=== PATIENT | female | born 1935 | race African-American/Black ===

== ENCOUNTER 2020-07-04 19:57 | Observation (INO) | payer MEDICARE, SELFPAY ==
--- NOTE | ~2020-07-04 | CT_ITS ---
EXAMINATION: CT pelvis wo con EXAM DATE: 07/04/2020 23:00 INDICATION: Fall today with left hip, pelvic pain. Hip replacements and negative x-ray. TECHNIQUE: Spiral CT pelvis wo con was performed pelvis Axial, coronal and sagittal images were revi ewed. The dose-length product (DLP) for this examination was 394.45 mGy-cm. The exposure was tailor ed according to patient size (auto mA exposure control), and iterative reconstruction (ASIR) was used as additional dose reduction technique. Correlation is made to x-ray same date. FINDINGS: There are bilateral hip replacements. This is causing some metallic artifact. Femoral compo nents were incompletely imaged but no fracture seen through them on the water system operator image or previous x-ray . Equivocal acute nondisplaced left superior ramus fracture. There is moderate amount of colonic stoo l. Pessary. Bladder poorly visualized. Extensive arterial sclerotic disease. IMPRESSION: Equivocal acute nondisplaced left superior ramus fracture Reviewed, dictated and finalized at location A.
--- NOTE | ~2020-07-04 | CT_ITS ---
EXAMINATION: CT brain wo con EXAM DATE: 07/04/2020 21:53 INDICATION: Fall, head injury. Alzheimer's. TECHNIQUE: Spiral CT of the head was performed without contrast. Axial, coronal and sagittal images were reviewed. The dose-length product (DLP) for this examination was 605.33 mGy-cm. The exposure w as tailored according to patient size, and iterative reconstruction (ASIR) was used as additional dos e reduction technique. There is no prior study for comparison. FINDINGS: There is no acute intraparenchymal hemorrhage. No evidence of intraparenchymal brain mass lesion. No evidence of acute infarction. Please note that initial head CT has limited sensitivity f or small or acute infarctions. There is old right thalamic lacunar infarction. There is moderate pe riventricular and subcortical hypodensity, nonspecific but probably related to small vessel ischemic disease. There is moderate prominence of the sulci and ventricles related to cerebral atrophy. Th ere is intracranial carotid arteriosclerosis. There are no extra-axial collections. There is no mas s effect or midline shift. Patient has had bilateral ocular lens surgery. Soft tissue is unremarkab le. The visualized sinuses and mastoid air cells are well aerated. IMPRESSION: 1. No acute intracranial findings. 2. Chronic age related findings. 3. 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 Reviewed, dictated and finalized at location A.
--- NOTE | ~2020-07-04 | XR_ITS ---
EXAMINATION: XR hip LT 2V w AP pelvis EXAM DATE: 07/04/2020 20:54 INDICATION: Initial encounter following injury, with pain of the pelvis, left hip. TECHNIQUE: Left hip frontal, 'frog leg' projections for interpretation. Frontal projection pelvis. C omparison is made to prior examination from 10/18/2019. FINDINGS: Pelvic ring appears intact. There are bilateral hip replacements, hardware is in expected p osition, with appearance unchanged compared to prior study. There are no acute fractures identified. There are arterial calcifications, arteriosclerosis. IMPRESSION: Intact bilateral hip replacements. Reviewed, dictated and finalized at location A.
[2020-07-04 20:11] VITALS: BP 148/87; PULSE 105; RESP 20; O2SAT 100
[2020-07-04 20:20] VITALS: BP 140/80; PULSE 109; RESP 20; TEMP 36.7; O2SAT 100
[2020-07-04 21:41] LABS: Basophils Absolute Auto 0.1 K/mm3 (0.0-0.1); Basophils Percent Auto 1.1 % (0.2-1.2); Eosinophils Absolute Auto 0.1 K/mm3 (0-0.3); Eosinophils Percent Auto 0.9 % (0-4.4); Hematocrit 41.6 % (37.0-47.0); Hemoglobin 13.3 g/dL (12.0-15.0); Immature Granulocyte Absolute 0.02 K/mm3 (0.00-0.031); Immature Granulocyte Percent A 0.4 % (0-0.5); Lymphocytes Percent Auto 18.1 % (18.3-44.2); Mean Corpuscular Hemoglobin 27.9 pg (26-34); Mean Corpuscular Volume 87.2 fl (80-100); Mean Platelet Volume 9.4 fl (7.4-10.4); Monocytes Absolute Auto 0.5 K/mm3 (0.1-0.6); Monocytes Percent Auto 8.3 % (2.6-8.5); Neutrophils Absolute Auto 3.9 K/mm3 (1.3-6.7); Neutrophils Percent Auto 71.2 % (45.5-73.1); Platelet Count Result 287 k/mm3 (150-375); Red Blood Count 4.77 M/mm3 (4.2-5.4); Red Cell Distribution Width 17.5 % (11.5-14.5); White Blood Count 5.5 K/mm3 (4.5-10.0)
[2020-07-04 21:51] LABS: Prothrombin Time 12.9 Seconds (11.1-14.7)
[2020-07-04 21:52] LABS: Partial Thromboplastin Time 36.7 SECONDS (22.3-36.8)
[2020-07-04 21:54] LABS: Alanine Aminotransferase 13 U/L (4-35); Alkaline Phosphatase 98 U/L (38-126); Anion Gap 5 mmol/L (8-16); Aspartate Amino Transferase 24 U/L (14-36); Bilirubin,Total 0.5 mg/dL (0.2-1.3); Blood Urea Nitrogen 10 mg/dL (7-17); Calcium 9.2 mg/dL (8.4-10.2); Carbon Dioxide 27 mmol/L (22-30); Chloride 107 mmol/L (98-107); Estimated CRCL calculation 32 ml/min; Estimated Glomerular Filt Rate > 60; Glucose 100 mg/dL (65-105); Potassium 4.4 mmol/L (3.4-5.0); Sodium 139 mmol/L (137-145)
[2020-07-04 22:00] VITALS: BP 142/130; PULSE 80; RESP 17; O2SAT 96
[2020-07-04 22:20] LABS: Add Urine Microscopic? YES; Appearance Urine Clear (Clear); Bilirubin Urine Negative (Negative); Blood Urine 1+ (Negative); Color Urine Yellow (Yellow); Glucose Urine UA Negative (Negative); Ketones Urine Negative (Negative); Leukocyte Esterase Ur Negative LEU/UL (Negative); Mucus Urine Rare /lpf; Nitrate Urine Negative (Negative); Protein Urine Negative (Negative); RBC Urine 0-2 /hpf (0-2); Specific Grav Ur 1.013 (1.001-1.035); Urobilinogen Urine Negative mg/dL (<2.0); WBC Urine 0-3 /hpf
--- NOTE | 2020-07-04 22:37 | ED.LOWEXIN ---
HPI - Extremity Injury (Lower) General Chief Complaint: Extremity Injury, Lower Stated Complaint: FALL Source: RN notes reviewed History of Present Illness HPI Narrative: Patient presents emergency department from home for a fall. History is per the patient's daughter states patient has dementia and was on with her. She states the patient gets up and wanders at night. States that approximately 6 AM this morning the patient fell initially the patient had no complaints and the fall was witnessed by daughter denies patient hitting her head. She states that throughout the day patient noted increasing pain in her left pelvis and hip region to the point she is not able to get up and walk. When asked to point to the pain the patient currently points in the left groin region the patient denies any other trauma or injury Related Data Home Medications Medication Instructions Recorded Confirmed aspirin 81 mg tablet,delayed 81 mg PO DAILY 04/17/20 release mirtazapine [Remeron] 15 mg PO HS 07/04/20 tramadol 50 mg PO TID PRN 07/04/20 Allergies Allergy/AdvReac Type Severity Reaction Status Date / Time No Known Allergies Allergy Unverified 07/04/20 20:23 Review of Systems Review of Systems: Narrative: Gen.: Denies fevers or chills ENT: Denies congestion Respiratory: Denies shortness of breath or cough CV: Denies chest pain or palpitations GI: Denies abdominal pain nausea, emesis or diarrhea Musculoskeletal: See HPI Neuro: Denies headache or change in mental status Skin: Denies rash Except as documented, all other systems reviewed and negative PMFSH Past Medical History Medical History History of dementia History of gastroesophageal reflux (GERD) Social History Social History Smoking status: Current every day smoker Gender identity (if verbalized by the patient): Female Exam Narrative: Exam Narrative: APPEARANCE: No acute distress, nontoxic, resting in bed EYES: PERRL, EOMI HEENT: Normocephalic, atraumatic, OMM RESPIRATORY: No respiratory distress Clear to auscultation bilaterally with no rhonchi wheezing or rales. CARDIOVASCULAR: Regular rate and rhythm without murmurs rubs or gallops. ABDOMINAL: Soft, nontender, nondistended, no rebound or guarding MUSCULOSKELETAl: Moves all extremities. No clubbing, cyanosis or edema. No tenderness over the left hip pain with active flexion of the left hip with passive range of motion full movement of the left hip without pain no tenderness the left knee or ankle, dorsalis pedis pulse 2+, neurovascular intact NEURO: Awake and alert. Following commands, speech normal, no focal deficits SKIN:: Warm, dry. No rashes lesions or abrasions PSYCHIATRIC: Normal affect/mood, Course Course Emergency Course: After initial x-ray attempt to get patient up to walk patient unable to walk secondary to pain. At this time will obtain CT pelvis Discussed with Dr. Alcantar presentation work-up. Agrees with admission at this time recommends consult with orthopedics in a.m. Discussed with patient and family results of workup and diagnosis. Discussed need for admission. Patient and family understand and agree to current treatment plan Vital Signs Vital signs: Vital Signs Pulse Rate 105 H 07/04/20 20:11 Respiratory Rate 20 07/04/20 20:11 Blood Pressure 148/87 H 07/04/20 20:11 Pulse Oximetry 100 07/04/20 20:11 Temperature 98.0 F 07/04/20 20:20 Pulse Rate 109 H 07/04/20 20:20 Respiratory Rate 20 07/04/20 20:20 Blood Pressure 140/80 07/04/20 20:20 Pulse Oximetry 100 07/04/20 20:20 MDM - Extremity Injury (Lower) Lab Data Result diagrams: 07/04/20 21:32 07/04/20 21:32 Labs: Lab Results 07/04/20 07/04/20 07/04/20 Range/Units 21:32 21:32 21:32 WBC 5.5 (4.5-10.0) K/mm3 RBC 4.77 (4.2-5.4) M/mm3 Hgb 13.3 (12.0-
[2020-07-04 23:24] VITALS: BP 137/121; PULSE 85; RESP 17; TEMP 36.8; O2SAT 100
[2020-07-05 00:01] VITALS: BP 153/115
[2020-07-05 00:10] VITALS: BP 157/98; PULSE 100; RESP 20; TEMP 36.9; O2SAT 99
--- NOTE | 2020-07-05 00:12 | ADMGEN ---
This patient, Lisa Knutson, was admitted to [facility] Surg Room 307-01. Patient/family oriented to hospital policies and general routines including ID bracelet, bed and alarms, visiting hours, pain management, procedures, bathroom and other care routines, personal items, smoking policy, room service/diet, and visiting hours. Valuables list has been completed. Information on how to activate the Rapid Response Team has been discussed. Patient/Family are encouraged to report perceived risks to care and to ask questions if they do not understand what they are told or what they should do.
[2020-07-05 00:45] VITALS: BMI 18.1
[2020-07-05 06:00] VITALS: BP 168/97; PULSE 106; RESP 18; TEMP 36.8; O2SAT 96
--- NOTE | 2020-07-05 07:31 | PM.CNOR ---
Assessment and Plan Additional Plan 85-year-old female with dementia, who apparently had a witnessed fall yesterday morning around 6:00 a.m.. She is brought to the emergency room. Her daughter states that she initially did not have any pain after the fall but as the time progressed she started complaining more pain in the left groin. Also patient was refusing to put weight on it which prompted daughter to bring her to the emergency room. Initial x-rays were negative. CT scan was equivocal for a left pubic ramus fracture. Physical exam is 85-year-old female, she appears in no distress. Her left hip flexes to 110?, externally rotates to 40, internally rotates to 20 with minimal discomfort. She states that she has moderate pain attempting to do a Stinchfield maneuver. She has no tenderness to the left hip, trochanteric region. There is ecchymosis and a mild abrasion over the anterior left knee. There is no effusion left knee. No tenderness about the left knee. There is no swelling in the left lower extremity. She has a 2+ dorsalis pedis pulse. ESR and CRP were ordered, just to rule out any possibility of infection, this does not appear to be that however. Dr. Garland did review CT scan and does not feel there is definite evidence a pubic ramus fracture. However, this may ultimately be that. Test confirmed this would be a bone scan, however since she had a fall yesterday bone scan at this point would not definitely light up to diagnose his pubic ramus fracture at this point difficulty. Bone scan is typically take 48-72 hours following trauma to confirm diagnosis. At this point we will treat this as if she does have pelvic fracture. Will have Physical therapy work with her with toe-touch weight-bearing with a walker to see if she tolerates this. If she continues to have significant problems with physical therapy, then we may need to order the bone scan. We will continue to monitor the patient while she is here. <DENNIS De La Cruz - Last Filed: 07/05/20 07:43> History of Present Illness HPI Consult date: 07/05/20 <DENNIS De La Cruz - Last Filed: 07/05/20 07:43> 07/08/20 <Agusto Garland MD - Last Filed: 07/08/20 12:30> Chief complaint: Left superior pubic rami fracture, gait <DENNIS De La Cruz - Last Filed: 07/05/20 07:43> REPLACED BY [facility] Past Medical History Medical History: Medical History History of dementia History of gastroesophageal reflux (GERD) <DENNIS De La Cruz - Last Filed: 07/05/20 07:43> Surgical History Surgical History: Surgical History History of open reduction and internal fixation (ORIF) procedure <DENNIS De La Cruz - Last Filed: 07/05/20 07:43> Social History Social History: Social History Smoking status: Current every day smoker Alcohol intake: current Substance use: never Gender identity (if verbalized by the patient): Female Spiritual care concerns: No <DENNIS De La Cruz - Last Filed: 07/05/20 07:43> Meds Home Medications and Allergies Home medications: Home Medications Medication Instructions Recorded Confirmed Type aspirin 81 mg tablet,delayed 81 mg PO DAILY 04/17/20 07/05/20 History release mirtazapine [Remeron] 15 mg PO HS 07/04/20 07/05/20 History tramadol 50 mg PO TID PRN 07/04/20 07/05/20 History <DENNIS De La Cruz - Last Filed: 07/05/20 07:43> Allergies/Adverse reactions: Allergies Allergy/AdvReac Type Severity Reaction Status Date / Time No Known Allergies Allergy Unverified 07/04/20 20:23 <DENNIS De La Cruz - Last Filed: 07/05/20 07:43> Vital Signs Vital Signs - 24 hr 07/04/20 20:11 07/04/20 20:20 07/04/20 22:00 Temperature 36.7 C Pulse Rate 105 H 109 H 80 Respiratory Rate 20 20 17 Blood Pressure 148/87 H 140/80 142/130 H
[2020-07-05 10:00] LABS: CRP 4.7 mg/dL (<1.0)
[2020-07-05 10:10] LABS: Erythrocyte Sedimentation Rate 43 mm/hr (0-20)
[2020-07-05] MEDS: ACETAMINOPHEN 325 MG TABLET 650 MG PO (12:13)
[2020-07-05 14:00] VITALS: BP 150/81; PULSE 88; RESP 18; TEMP 36.9; O2SAT 97
[2020-07-05 15:27] VITALS: BMI 18.1
--- NOTE | 2020-07-05 17:23 | PM.IMHP ---
H&P: HPI History of Present Illness Date/Time: 07/05/20 17:23 Chief complaint: Left superior pubic rami fracture, gait Narrative: Lisa Knutson is a 85 year old female with history of dementia who presented to the hospital after she had a mechanical fall a day ago. Per her daughter the patient did not have much pain first but then started to complain about groin pain and was refusing to walk. Currently she looks comfortable, she is not a good historian given her dementia but she denies pain, no SOB, no palpitations no other related symptoms . Review of Systems Review of Systems: All systems reviewed & are unremarkable except as noted in HPI and below PMFSH Past Medical History Medical History History of dementia History of gastroesophageal reflux (GERD) Surgical History Surgical History History of open reduction and internal fixation (ORIF) procedure Social History Social History Smoking status: Current every day smoker Alcohol intake: current Substance use: never Gender identity (if verbalized by the patient): Female Spiritual care concerns: No Meds Home Medications and Allergies Home Medications Medication Instructions Recorded Confirmed Type aspirin 81 mg tablet,delayed 81 mg PO DAILY 04/17/20 07/05/20 History release mirtazapine [Remeron] 15 mg PO HS 07/04/20 07/05/20 History tramadol 50 mg PO TID PRN 07/04/20 07/05/20 History Allergies Allergy/AdvReac Type Severity Reaction Status Date / Time No Known Allergies Allergy Unverified 07/04/20 20:23 Vital Signs Vital Signs - 24 hr 07/04/20 20:11 07/04/20 20:20 07/04/20 22:00 Temperature 98.0 F Pulse Rate 105 H 109 H 80 Respiratory Rate 20 20 17 Blood Pressure 148/87 H 140/80 142/130 H Pulse Oximetry 100 100 96 07/04/20 23:24 07/05/20 00:01 07/05/20 00:10 Temperature 98.2 F 98.4 F Pulse Rate 85 100 Respiratory Rate 17 20 Blood Pressure 137/121 H 153/115 H 157/98 H Pulse Oximetry 100 99 07/05/20 06:00 07/05/20 14:00 Temperature 98.3 F 98.4 F Pulse Rate 106 H 88 Respiratory Rate 18 18 Blood Pressure 168/97 H 150/81 H Pulse Oximetry 96 97 Exam Const: General: comfortable and no acute distress Other: Alert but confused, most likely at baseline. Eyes: Pupils: Equal, round and reactive pupils present Neck: Neck: supple and no JVD Resp: Effort & Inspection: normal respiratory effort Auscultation: clear to auscultation bilaterally Cardio: Rate: regular rate and tachycardic Rhythm: regular rhythm GI: GI Palp: Yes Soft to palpation Auscultation: normal bowel sounds Other: Non tender. Neuro: Speech: normal speech Motor exam (neuro): 5/5 motor strength present throughout and Normal motor muscle tone present throughout Extrem: Other: No edema, range of motion of the lower extremities are preserved. Psych: Other: Confused but pleasant , not in distress. H&P: Results Labs Labs: Short CBC 07/04/20 Range/Units 21:32 WBC 5.5 (4.5-10.0) K/mm3 Hgb 13.3 (12.0-15.0) g/dL Hct 41.6 (37.0-47.0) % Plt Count 287 (150-375) k/mm3 BMP 07/04/20 21:32 Sodium 139 Potassium 4.4 Chloride 107 Carbon Dioxide 27 BUN 10 Creatinine 0.80 Glucose 100 Calcium 9.2 Liver Function 07/04/20 Range/Units 21:32 Total Bilirubin 0.5 (0.2-1.3) mg/dL AST 24 (14-36) U/L ALT 13 (4-35) U/L Alkaline Phosphatase 98 (38-126) U/L Albumin 4.0 (3.5-5.1) g/dL Urine 07/04/20 Range/Units 22:02 Urine Color Yellow (Yellow) Urine Appearance Clear (Clear) Urine pH 5.0 (5.0-9.0) Ur Specific [place] 1.013 (1.001-1.035) Urine Protein Negative (Negative) mg/dL Urine Glucose (UA) Negative (Negative) mg/dL Assessment and Plan Assessment and plan (1) Gait instability:
[2020-07-05 22:00] VITALS: BP 153/81; PULSE 118; RESP 18; TEMP 37.3; O2SAT 98
[2020-07-05] MEDS: MELATONIN 3 MG TABLET PO (22:00)
[2020-07-05] MEDS: MIRTAZAPINE 15 MG TABLET PO (22:00)
[2020-07-05 22:01] VITALS: PULSE 118
[2020-07-05] MEDS: carvediloL 6.25 MG TABLET PO (22:01)
[2020-07-06 05:41] LABS: Basophils Absolute Auto 0.1 K/mm3 (0.0-0.1); Basophils Percent Auto 1.3 % (0.2-1.2); Eosinophils Absolute Auto 0.1 K/mm3 (0-0.3); Eosinophils Percent Auto 1.8 % (0-4.4); Hematocrit 38.3 % (37.0-47.0); Hemoglobin 12.3 g/dL (12.0-15.0); Immature Granulocyte Absolute 0.01 K/mm3 (0.00-0.031); Immature Granulocyte Percent A 0.2 % (0-0.5); Lymphocytes Absolute Auto 1.25 K/mm3 (0.9-3.2); Lymphocytes Percent Auto 22.5 % (18.3-44.2); Mean Corpuscular HGB Conc 32.1 g/dl (32-36); Mean Corpuscular Hemoglobin 28.1 pg (26-34); Mean Corpuscular Volume 87.4 fl (80-100); Mean Platelet Volume 9.6 fl (7.4-10.4); Monocytes Absolute Auto 0.6 K/mm3 (0.1-0.6); Monocytes Percent Auto 9.9 % (2.6-8.5); Neutrophils Absolute Auto 3.6 K/mm3 (1.3-6.7); Neutrophils Percent Auto 64.3 % (45.5-73.1); Platelet Count Result 255 k/mm3 (150-375); Red Blood Count 4.38 M/mm3 (4.2-5.4); Red Cell Distribution Width 17.5 % (11.5-14.5); White Blood Count 5.6 K/mm3 (4.5-10.0)
[2020-07-06 06:00] VITALS: BP 167/88; PULSE 103; RESP 18; TEMP 36.5; O2SAT 98
[2020-07-06 06:15] LABS: Anion Gap 6 mmol/L (8-16); Blood Urea Nitrogen 12 mg/dL (7-17); Calcium 8.9 mg/dL (8.4-10.2); Carbon Dioxide 26 mmol/L (22-30); Chloride 105 mmol/L (98-107); Estimated CRCL calculation 43 ml/min; Estimated Glomerular Filt Rate > 60; Glucose 87 mg/dL (65-105); Potassium 4.3 mmol/L (3.4-5.0); Sodium 137 mmol/L (137-145)
[2020-07-06 08:47] VITALS: PULSE 96
[2020-07-06] MEDS: ASPIRIN 81 MG ENTERIC TABLET PO (08:47)
[2020-07-06] MEDS: carvediloL 6.25 MG TABLET PO ×2 (08:47→20:46)
--- NOTE | 2020-07-06 11:46 | PM.IMPN ---
Progress Note: A&P Assessment and Plan (1) Gait instability: Code(s): R26.81 - Unsteadiness on feet Status: Acute Assessment and Plan: She was thought to have a pubic ramus fracture but orthopedics is not convinced that that is the case. She is going to get physical therapy and she is having tylenol for pain. (2) Hypertension: Code(s): I10 - Essential (primary) hypertension Status: Acute Assessment and Plan: Her blood pressure still on the high side but acceptable for her age, her HR under better control. On carvedilol. (3) Dementia: Code(s): F03.90 - Unspecified dementia without behavioral disturbance Status: Acute Assessment and Plan: She seems at baseline but she is at risk for delirium. Avoid medications with high anticholinergic burden. Subjective Date/time seen: Confused, trying to get out of bed, no in distress. 07/06/20 11:46 Exam Const: General: comfortable and no acute distress Other: Alert but confused, most likely at baseline. Neck: Neck: supple and no JVD Resp: Effort & Inspection: normal respiratory effort Auscultation: clear to auscultation bilaterally Cardio: Rate: regular rate and tachycardic Rhythm: regular rhythm GI: Auscultation: normal bowel sounds Other: Non tender. Neuro: Cranial nerves: Yes Equal, round and reactive pupils present Speech: normal speech Motor exam (neuro): 5/5 motor strength present throughout and Normal motor muscle tone present throughout Extrem: Other: No edema. Objective Data Vital Signs Vital Signs: Vital Signs - 24 hr 07/05/20 14:00 07/05/20 22:00 07/05/20 22:01 Temperature 98.4 F 99.2 F Pulse Rate 88 118 H 118 H Respiratory Rate 18 18 Blood Pressure 150/81 H 153/81 H Pulse Oximetry 97 98 07/06/20 06:00 07/06/20 08:47 Temperature 97.7 F Pulse Rate 103 H 96 Respiratory Rate 18 Blood Pressure 167/88 H Pulse Oximetry 98 Intake/Output Intake/Output: Intake & Output 07/03/20 07/04/20 07/05/20 07/06/20 23:59 23:59 23:59 23:59 Intake Total 100 570 370 Output Total 300 Balance -200 570 370 Meds/Results Medications: Active Medications Generic Name Dose Route Start Last Admin Trade Name Tyron PRN Reason Stop Dose Admin Acetaminophen 650 mg 07/05/20 11:51 07/05/20 12:13 Tylenol Tablet PO 650 mg Q4H PRN Administration Pain Aspirin 81 mg 07/06/20 09:00 07/06/20 08:47 Aspirin Ec PO 81 mg DAILY MOHAN Administration Carvedilol 6.25 mg 07/05/20 21:00 07/06/20 08:47 Coreg PO 6.25 mg Q12HR MOHAN Administration Melatonin 3 mg 07/05/20 21:00 07/05/20 22:00 Melatonin PO 3 mg HS MOHAN Administration Mirtazapine 15 mg 07/05/20 21:00 07/05/20 22:00 Remeron PO 15 mg HS MOHAN Administration Tramadol HCl 50 mg 07/05/20 12:52 Ultram PO TID PRN Pain 4 -6 Radiology Results: ITS Impressions Hip/Pelvis X-Ray 07/04/20 21:03 IMPRESSION: Intact bilateral hip replacements. Head CT 07/04/20 21:55 IMPRESSION: 1. No acute intracranial findings. 2. Chronic age related findings. 3. 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 Pelvis CT 07/04/20 23:01 IMPRESSION: Equivocal acute nondisplaced left superior ramus fracture Labs Labs: Laboratory Results - last 24 hr 07/06/20 07/06/20 05:16 05:16 WBC 5.6 RBC 4.38 Hgb 12.3 Hct 38.3 MCV 87.4 MCH 28.1 MCHC 32.1 RDW 17.5 H Plt Count 255 MPV 9.6 Immature Gran % (Auto) 0.2 Neut % (Auto) 64.3 Lymph % (Auto) 22.5 [place] % (Auto) 9.9 H Eos % (Auto) 1.8 Baso % (Auto) 1.3 H Lymph # (Auto) 1.25 [place] # (Auto) 0.6 Eos # (Auto) 0.1 Baso # (Auto) 0.1 Abs Immat Gran (auto) 0.01 Absolute Neuts (auto) 3.6 Absolute Nucleated RBC 0.0 Nucleated RBC % 0.0 Sodium 137 Potassium 4.3 Chloride 105 Carbon Dioxide 26 Anion Gap 6 L BUN 12 Creatinine 0.60 L Estim Crea
--- NOTE | 2020-07-06 12:00 | PM.PNORT ---
Progress Note: A&P Additional Plan pt did not work well with PT this am, CRP 4.7 and ESR 43 which are elevated. today pts hip flexs to 110 degreees ,ER to 40 and IR to 30 without any sign of discomfort,no facial changes ,grimmacing, no c/o of pain, pt is able to hold leg in extension without pain. No tenderness about the hip or post. pelvis. It is a difficult to determine as diagnosis for this pt. She does have slightly elevated labs but PE does not reproduce any symptoms. Typically infx would reproduce severe pain with ROM. Also pubic ramus fx should reproduce pain with ROM of hip. Today she is having now symptoms on PE. She may have pubic ramus fx but the only test to use is a bone scan which will light up the fracture. Unfortunately it takes 3-4 days after the trauma for the test to be positive. If she does have a ramus fx the treatment is the same with protected weight bearing, so at this point would recommend to cont. with this. Social work is working on NH placement <DENNIS De La Cruz - Last Filed: 07/06/20 12:10> Subjective Subjective Date/Time Seen: 07/06/20 12:01 <DENNIS De La Cruz - Last Filed: 07/06/20 12:10> Objective Data Vital Signs Vital Signs: Vital Signs - 24 hr 07/05/20 14:00 07/05/20 22:00 07/05/20 22:01 Temperature 36.9 C 37.3 C Pulse Rate 88 118 H 118 H Respiratory Rate 18 18 Blood Pressure 150/81 H 153/81 H Pulse Oximetry 97 98 07/06/20 06:00 07/06/20 08:47 Temperature 36.5 C Pulse Rate 103 H 96 Respiratory Rate 18 Blood Pressure 167/88 H Pulse Oximetry 98 <DENNIS De La Cruz - Last Filed: 07/06/20 12:10> Intake/Output Intake/Output: Intake & Output 07/03/20 07/04/20 07/05/20 07/06/20 23:59 23:59 23:59 23:59 Intake Total 100 570 370 Output Total 300 Balance -200 570 370 <DENNIS De La Cruz - Last Filed: 07/06/20 12:10> Meds/Results Medications: Active Medications Generic Name Dose Route Start Last Admin Trade Name Jessuq PRN Reason Stop Dose Admin Acetaminophen 650 mg 07/05/20 11:51 07/05/20 12:13 Tylenol Tablet PO 650 mg Q4H PRN Administration Pain Aspirin 81 mg 07/06/20 09:00 07/06/20 08:47 Aspirin Ec PO 81 mg DAILY MOHAN Administration Carvedilol 6.25 mg 07/05/20 21:00 07/06/20 08:47 Coreg PO 6.25 mg Q12HR MOHAN Administration Enoxaparin Sodium 40 mg 07/07/20 09:00 Lovenox SUB-Q DAILY MOHAN Melatonin 3 mg 07/05/20 21:00 07/05/20 22:00 Melatonin PO 3 mg HS MOHAN Administration Mirtazapine 15 mg 07/05/20 21:00 07/05/20 22:00 Remeron PO 15 mg HS MOHAN Administration Tramadol HCl 50 mg 07/05/20 12:52 Ultram PO TID PRN Pain 4 -6 <DENNIS De La Cruz - Last Filed: 07/06/20 12:10> Radiology Results: ITS Impressions Hip/Pelvis X-Ray 07/04/20 21:03 IMPRESSION: Intact bilateral hip replacements. Head CT 07/04/20 21:55 IMPRESSION: 1. No acute intracranial findings. 2. Chronic age related findings. 3. 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 Pelvis CT 07/04/20 23:01 IMPRESSION: Equivocal acute nondisplaced left superior ramus fracture <DENNIS De La Cruz - Last Filed: 07/06/20 12:10> Labs Labs: Laboratory Results - last 24 hr 07/06/20 07/06/20 05:16 05:16 WBC 5.6 RBC 4.38 Hgb 12.3 Hct 38.3 MCV 87.4 MCH 28.1 MCHC 32.1 RDW 17.5 H Plt Count 255 MPV 9.6 Immature Gran % (Auto) 0.2 Neut % (Auto) 64.3 Lymph % (Auto) 22.5 [place] % (Auto) 9.9 H Eos % (Auto) 1.8 Baso % (Auto) 1.3 H Lymph # (Auto) 1.25 [place] # (Auto) 0.6 Eos # (Auto) 0.1 Baso # (Auto) 0.1 Abs Immat Gran (auto) 0.01 Absolute Neuts (auto) 3.6 Absolute Nucleated RBC 0.0 Nucleated RBC % 0.0 Sodium 137 Potassium 4.3 Chloride 105 Carbon Dioxide 26 Anion Gap 6 L BUN 12 Creatinine 0.60 L Estim Creat Clear Calc 43 Estimated GFR > 60 Glucose 87 Calcium 8.
[2020-07-06 14:00] VITALS: BP 148/87; PULSE 83; RESP 16; TEMP 36.9; O2SAT 94
[2020-07-06 14:05] LABS: SARS-CoV-2 RNA PCR Negative
[2020-07-06 20:46] VITALS: PULSE 97
[2020-07-06] MEDS: MELATONIN 3 MG TABLET PO (20:46)
[2020-07-06] MEDS: MIRTAZAPINE 15 MG TABLET PO (20:46)
[2020-07-06] MEDS: ACETAMINOPHEN 325 MG TABLET 650 MG PO (20:55)
[2020-07-06 22:00] VITALS: BP 162/93; PULSE 97; RESP 18; TEMP 36.4; O2SAT 98
[2020-07-07 06:00] VITALS: BP 149/79; PULSE 88; RESP 18; TEMP 36.6; O2SAT 99
[2020-07-07 06:42] LABS: Basophils Absolute Auto 0.1 K/mm3 (0.0-0.1); Basophils Percent Auto 1.6 % (0.2-1.2); Eosinophils Absolute Auto 0.2 K/mm3 (0-0.3); Eosinophils Percent Auto 3.4 % (0-4.4); Hematocrit 37.5 % (37.0-47.0); Hemoglobin 11.8 g/dL (12.0-15.0); Immature Granulocyte Absolute 0.02 K/mm3 (0.00-0.031); Immature Granulocyte Percent A 0.4 % (0-0.5); Lymphocytes Absolute Auto 1.28 K/mm3 (0.9-3.2); Lymphocytes Percent Auto 28.8 % (18.3-44.2); Mean Corpuscular HGB Conc 31.5 g/dl (32-36); Mean Corpuscular Hemoglobin 27.6 pg (26-34); Mean Corpuscular Volume 87.6 fl (80-100); Mean Platelet Volume 10.1 fl (7.4-10.4); Monocytes Absolute Auto 0.5 K/mm3 (0.1-0.6); Monocytes Percent Auto 10.1 % (2.6-8.5); Neutrophils Absolute Auto 2.5 K/mm3 (1.3-6.7); Neutrophils Percent Auto 55.7 % (45.5-73.1); Platelet Count Result 264 k/mm3 (150-375); Red Blood Count 4.28 M/mm3 (4.2-5.4); Red Cell Distribution Width 17.6 % (11.5-14.5); White Blood Count 4.5 K/mm3 (4.5-10.0)
[2020-07-07 07:09] LABS: Anion Gap 5 mmol/L (8-16); Blood Urea Nitrogen 12 mg/dL (7-17); Calcium 8.9 mg/dL (8.4-10.2); Carbon Dioxide 26 mmol/L (22-30); Chloride 105 mmol/L (98-107); Estimated CRCL calculation 43 ml/min; Estimated Glomerular Filt Rate > 60; Glucose 73 mg/dL (65-105); Sodium 136 mmol/L (137-145)
--- NOTE | 2020-07-07 08:07 | PM.IMPN ---
Progress Note: A&P Assessment and Plan (1) Gait instability: Code(s): R26.81 - Unsteadiness on feet Status: Acute Assessment and Plan: Possible pubic ramus fracture, continue current management with PT, waiting on NH placement. Tylenol for pain. (2) Hypertension: Code(s): I10 - Essential (primary) hypertension Status: Acute Assessment and Plan: Her blood pressure still on the high side but acceptable for her age, her HR under better control. On carvedilol. (3) Dementia: Code(s): F03.90 - Unspecified dementia without behavioral disturbance Status: Acute Assessment and Plan: She seems at baseline but she is at risk for delirium. Avoid medications with high anticholinergic burden. Subjective Date/time seen: Confused but not in distress, she states that her pain is getting better. 07/07/20 08:07 Exam Const: General: comfortable and no acute distress Other: Alert but confused, most likely at baseline. Eyes: Pupils: Equal, round and reactive pupils present Neck: Neck: supple and no JVD Resp: Effort & Inspection: normal respiratory effort Auscultation: clear to auscultation bilaterally Cardio: Rate: regular rate and tachycardic Rhythm: regular rhythm GI: Auscultation: normal bowel sounds Other: Non tender. Neuro: Cranial nerves: Yes Equal, round and reactive pupils present Speech: normal speech Motor exam (neuro): 5/5 motor strength present throughout and Normal motor muscle tone present throughout Extrem: Other: No edema. Psych: Other: Confused but pleasant , not in distress. Objective Data Vital Signs Vital Signs: Vital Signs - 24 hr 07/06/20 08:47 07/06/20 14:00 07/06/20 20:46 Temperature 98.4 F Pulse Rate 96 83 97 Respiratory Rate 16 Blood Pressure 148/87 H Pulse Oximetry 94 07/06/20 22:00 07/07/20 06:00 Temperature 97.6 F 98 F Pulse Rate 97 88 Respiratory Rate 18 18 Blood Pressure 162/93 H 149/79 H Pulse Oximetry 98 99 Intake/Output Intake/Output: Intake & Output 07/04/20 07/05/20 07/06/20 07/07/20 23:59 23:59 23:59 23:59 Intake Total 100 570 780 100 Output Total 300 Balance -200 570 780 100 Meds/Results Medications: Active Medications Generic Name Dose Route Start Last Admin Trade Name Tyron PRN Reason Stop Dose Admin Acetaminophen 650 mg 07/05/20 11:51 07/06/20 20:55 Tylenol Tablet PO 650 mg Q4H PRN Administration Pain Aspirin 81 mg 07/06/20 09:00 07/06/20 08:47 Aspirin Ec PO 81 mg DAILY MOHAN Administration Carvedilol 6.25 mg 07/05/20 21:00 07/06/20 20:46 Coreg PO 6.25 mg Q12HR MOHAN Administration Enoxaparin Sodium 40 mg 07/07/20 09:00 Lovenox SUB-Q DAILY MOHAN Melatonin 3 mg 07/05/20 21:00 07/06/20 20:46 Melatonin PO 3 mg HS MOHAN Administration Mirtazapine 15 mg 07/05/20 21:00 07/06/20 20:46 Remeron PO 15 mg HS MOHAN Administration Tramadol HCl 50 mg 07/05/20 12:52 Ultram PO TID PRN Pain 4 -6 Radiology Results: ITS Impressions Hip/Pelvis X-Ray 07/04/20 21:03 IMPRESSION: Intact bilateral hip replacements. Head CT 07/04/20 21:55 IMPRESSION: 1. No acute intracranial findings. 2. Chronic age related findings. 3. 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 Pelvis CT 07/04/20 23:01 IMPRESSION: Equivocal acute nondisplaced left superior ramus fracture Labs Labs: Laboratory Results - last 24 hr 07/06/20 07/07/20 07/07/20 05:07 06:17 06:17 WBC 4.5 RBC 4.28 Hgb 11.8 L Hct 37.5 MCV 87.6 MCH 27.6 MCHC 31.5 L RDW 17.6 H Plt Count 264 MPV 10.1 Immature Gran % (Auto) 0.4 Neut % (Auto) 55.7 Lymph % (Auto) 28.8 [place] % (Auto) 10.1 H Eos % (Auto) 3.4 Baso % (Auto) 1.6 H Lymph # (Auto) 1.28 [place] # (Auto) 0.5 Eos # (Auto) 0.2 Baso # (Auto) 0.1 Abs Immat Gran (auto) 0.02 Absolute Neuts (auto
[2020-07-07 08:18] VITALS: PULSE 84
[2020-07-07] MEDS: ASPIRIN 81 MG ENTERIC TABLET PO (08:18)
[2020-07-07] MEDS: carvediloL 6.25 MG TABLET PO ×2 (08:18→21:55)
[2020-07-07] MEDS: ENOXAPARIN 40 MG/0.4 ML SYRINGE SUB-Q (08:20)
[2020-07-07 14:00] VITALS: BP 146/70; PULSE 86; RESP 20; TEMP 36.2; O2SAT 96
--- NOTE | 2020-07-07 18:43 | PC.NURSE ---
1700 prudence from hospice called for update on pt, no new orders given
[2020-07-07] MEDS: traMADol HCL 50 MG TABLET PO (21:54)
[2020-07-07 21:55] VITALS: PULSE 80
[2020-07-07] MEDS: MELATONIN 3 MG TABLET PO (21:55)
[2020-07-07] MEDS: MIRTAZAPINE 15 MG TABLET PO (21:56)
[2020-07-07 22:00] VITALS: BP 148/91; PULSE 91; RESP 16; TEMP 36.6; O2SAT 98
[2020-07-08 06:00] VITALS: BP 149/76; PULSE 83; RESP 16; TEMP 36.3; O2SAT 99
[2020-07-08 07:16] LABS: Basophils Absolute Auto 0.1 K/mm3 (0.0-0.1); Basophils Percent Auto 1.2 % (0.2-1.2); Eosinophils Absolute Auto 0.2 K/mm3 (0-0.3); Hematocrit 38.8 % (37.0-47.0); Hemoglobin 12.7 g/dL (12.0-15.0); Immature Granulocyte Absolute 0.02 K/mm3 (0.00-0.031); Immature Granulocyte Percent A 0.4 % (0-0.5); Lymphocytes Absolute Auto 1.73 K/mm3 (0.9-3.2); Lymphocytes Percent Auto 30.4 % (18.3-44.2); Mean Corpuscular HGB Conc 32.7 g/dl (32-36); Mean Corpuscular Hemoglobin 28.2 pg (26-34); Monocytes Absolute Auto 0.7 K/mm3 (0.1-0.6); Monocytes Percent Auto 11.8 % (2.6-8.5); Neutrophils Percent Auto 53.2 % (45.5-73.1); Platelet Count Result 289 k/mm3 (150-375); Red Blood Count 4.51 M/mm3 (4.2-5.4); Red Cell Distribution Width 17.2 % (11.5-14.5); White Blood Count 5.7 K/mm3 (4.5-10.0)
[2020-07-08 07:31] LABS: Anion Gap 6 mmol/L (8-16); Blood Urea Nitrogen 8 mg/dL (7-17); Calcium 9.2 mg/dL (8.4-10.2); Carbon Dioxide 27 mmol/L (22-30); Chloride 103 mmol/L (98-107); Estimated CRCL calculation 43 ml/min; Estimated Glomerular Filt Rate > 60; Glucose 98 mg/dL (65-105); Potassium 3.7 mmol/L (3.4-5.0); Sodium 136 mmol/L (137-145)
[2020-07-08 09:40] VITALS: PULSE 62
[2020-07-08] MEDS: ASPIRIN 81 MG ENTERIC TABLET PO (09:40)
[2020-07-08] MEDS: carvediloL 6.25 MG TABLET PO ×2 (09:40→22:32)
[2020-07-08] MEDS: ENOXAPARIN 40 MG/0.4 ML SYRINGE SUB-Q (09:41)
--- NOTE | 2020-07-08 12:30 | PM.IMPN ---
Progress Note: A&P Assessment and Plan (1) Gait instability: Code(s): R26.81 - Unsteadiness on feet Status: Acute Assessment and Plan: Possible pubic ramus fracture, continue current management with PT, waiting on NH placement. Tylenol for pain. (2) Hypertension: Code(s): I10 - Essential (primary) hypertension Status: Acute Assessment and Plan: Her blood pressure still on the high side but acceptable for her age, her HR under better control. On carvedilol. (3) Dementia: Code(s): F03.90 - Unspecified dementia without behavioral disturbance Status: Acute Assessment and Plan: She seems at baseline but she is at risk for delirium. Avoid medications with high anticholinergic burden. Subjective Date/time seen: No change in clinical status, confused but not in distress. 07/08/20 12:30 Exam Const: General: comfortable and no acute distress Other: Alert but confused, most likely at baseline. Eyes: Pupils: Equal, round and reactive pupils present Neck: Neck: supple and no JVD Resp: Effort & Inspection: normal respiratory effort Auscultation: clear to auscultation bilaterally Cardio: Rate: regular rate Rhythm: regular rhythm Other: No tachycardia or bradycardia. GI: Auscultation: normal bowel sounds Other: Non tender. Neuro: Cranial nerves: Yes Equal, round and reactive pupils present Speech: normal speech Motor exam (neuro): 5/5 motor strength present throughout and Normal motor muscle tone present throughout Extrem: Other: No edema. Psych: Other: Confused but pleasant , not in distress. Objective Data Vital Signs Vital Signs: Vital Signs - 24 hr 07/07/20 14:00 07/07/20 21:55 07/07/20 22:00 Temperature 97.2 F L 97.9 F Pulse Rate 86 80 91 Respiratory Rate 20 16 Blood Pressure 146/70 H 148/91 H Pulse Oximetry 96 98 07/08/20 06:00 07/08/20 09:40 Temperature 97.3 F L Pulse Rate 83 62 Respiratory Rate 16 Blood Pressure 149/76 H Pulse Oximetry 99 Intake/Output Intake/Output: Intake & Output 07/05/20 07/06/20 07/07/20 07/08/20 23:59 23:59 23:59 23:59 Intake Total 942 672 0768 120 Output Total 200 Balance 236 200 9588 -80 Meds/Results Medications: Active Medications Generic Name Dose Route Start Last Admin Trade Name Tyron PRN Reason Stop Dose Admin Acetaminophen 650 mg 07/05/20 11:51 07/06/20 20:55 Tylenol Tablet PO 650 mg Q4H PRN Administration Pain Aspirin 81 mg 07/06/20 09:00 07/08/20 09:40 Aspirin Ec PO 81 mg DAILY MOHAN Administration Carvedilol 6.25 mg 07/05/20 21:00 07/08/20 09:40 Coreg PO 6.25 mg Q12HR MOHAN Administration Enoxaparin Sodium 40 mg 07/07/20 09:00 07/08/20 09:41 Lovenox SUB-Q 40 mg DAILY MOHAN Administration Melatonin 3 mg 07/05/20 21:00 07/07/20 21:55 Melatonin PO 3 mg HS MOHAN Administration Mirtazapine 15 mg 07/05/20 21:00 07/07/20 21:56 Remeron PO 15 mg HS MOHAN Administration Tramadol HCl 50 mg 07/05/20 12:52 07/07/20 21:54 Ultram PO 50 mg TID PRN Administration Pain 4 -6 Radiology Results: ITS Impressions Hip/Pelvis X-Ray 07/04/20 21:03 IMPRESSION: Intact bilateral hip replacements. Head CT 07/04/20 21:55 IMPRESSION: 1. No acute intracranial findings. 2. Chronic age related findings. 3. 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 Pelvis CT 07/04/20 23:01 IMPRESSION: Equivocal acute nondisplaced left superior ramus fracture Labs Labs: Laboratory Results - last 24 hr 07/08/20 07/08/20 06:33 06:33 WBC 5.7 RBC 4.51 Hgb 12.7 Hct 38.8 MCV 86.0 MCH 28.2 MCHC 32.7 RDW 17.2 H Plt Count 289 MPV 10.0 Immature Gran % (Auto) 0.4 Neut % (Auto) 53.2 Lymph % (Auto) 30.4 [place] % (Auto) 11.8 H Eos % (Auto) 3.0 Baso % (Auto) 1.2 Lymph # (Auto) 1.73 [place] # (Auto) 0.7 H Eos # (Auto) 0.2 Baso # (Auto) 0.1 A
--- NOTE | 2020-07-08 12:30 | PM.CNOR ---
Assessment and Plan Additional Plan Patient is now day 3 after admission for groin pain complaints after a fall 3 days ago. She has significant dementia and cannot understand my questioning and her answers are unresponsive unfortunately. I am told by the nurse who watched her get up the chair today that she cannot follow commands with respect to touch weight-bearing but she was able to move around and not complain of any groin pain. She is sitting in a geriatric chair right now and she can extend her knee actively and tries to lift her leg a little bit and when she is doing this I ask if she has any pain and she says now. When I hold her heel and trying to flex her hip further I ask if she has pain and she has pain at the heel and when I palpate her knee she says she has pain at the knee and I asked if it hurts when I push on it and she says no so it is very difficult. She does not have any swelling in the lower extremity. I rotated her hip without discomfort. Again she had x-rays which show the bilateral hip replacements without evidence of fracture or complication. She had a CT scan of the pelvis which showed equivocal evidence for a superior pubic ramus fracture on the left which means we do not know if there is a superior pubic ramus fracture on the left. I think it would be appropriate to advance her to weight-bearing as tolerated with walker with the understanding that she might have complaints of pain and we should try and ascertain the location of this pain and ultimately we may need to obtain a technetium bone scan which usually takes a minimum of 72 hours to show increased uptake and with these pubic ramus fractures it may take longer than that before they show uptake on bone scan. I will advance her to weight-bearing as tolerated we will see how she does with that. If she has a nondisplaced isolated left and superior pubic ramus fracture on the left weightbearing is not Going to result in irreversible complication and although it can cause a little this bit of displacement with time. differential diagnosis also must include occult periprosthetic fracture around the hip replacement. Soft tissue strain such as an ileus psoas strain can certainly cause groin pain after a fall and the presence of a hip replacement. Infection seems extremely unlikely as she is not complaining of pain at rest and she has been afebrile with normal white count. She does have mild elevations of sedimentation rate and CRP which are nonspecific. History of Present Illness HPI Consult date: 07/08/20 Chief complaint: Left superior pubic rami fracture, gait PMFSH Past Medical History Medical History History of dementia History of gastroesophageal reflux (GERD) Surgical History Surgical History History of open reduction and internal fixation (ORIF) procedure Social History Social History Smoking status: Current every day smoker Alcohol intake: current Substance use: never Gender identity (if verbalized by the patient): Female Spiritual care concerns: No Meds Home Medications and Allergies Home Medications Medication Instructions Recorded Confirmed Type aspirin 81 mg tablet,delayed 81 mg PO DAILY 04/17/20 07/05/20 History release mirtazapine [Remeron] 15 mg PO HS 07/04/20 07/05/20 History tramadol 50 mg PO TID PRN 07/04/20 07/05/20 History Allergies Allergy/AdvReac Type Severity Reaction Status Date / Time No Known Allergies Allergy Unverified 07/04/20 20:23 Vital Signs Vital Signs - 24 hr 07/07/20 14:00 07/07/20 21:55 07/07/20 22:00 Temperature 36.2 C L 36.6 C Pulse Rate 86 80 91 Respiratory Rate 20 16 Blood Pressure 146/70 H 148/91 H Pulse Oximetry 96 98 07/08/20 06:00 07/08/20 09:40 Temperature 36.3 C L Pulse Rate 83 62 Respirat
[2020-07-08 14:00] VITALS: BP 135/78; PULSE 88; RESP 12; TEMP 36.1; O2SAT 96
[2020-07-08 22:00] VITALS: BP 146/93; PULSE 83; RESP 16; TEMP 36.6; O2SAT 100
[2020-07-08 22:32] VITALS: PULSE 94
[2020-07-08] MEDS: MIRTAZAPINE 15 MG TABLET PO (22:32)
[2020-07-09] MEDS: traMADol HCL 50 MG TABLET PO (02:35)
[2020-07-09 06:00] VITALS: BP 139/75; PULSE 89; RESP 16; TEMP 37.1; O2SAT 92
[2020-07-09] MEDS: ASPIRIN 81 MG ENTERIC TABLET PO (09:35)
[2020-07-09] MEDS: ENOXAPARIN 40 MG/0.4 ML SYRINGE SUB-Q (09:35)
[2020-07-09 09:37] VITALS: PULSE 100
[2020-07-09] MEDS: carvediloL 6.25 MG TABLET PO ×2 (09:37→20:41)
--- NOTE | 2020-07-09 11:21 | PM.PNORT ---
Progress Note: A&P Additional Plan pt worked with PT today, no c/o of pain, was refusing to up to chair. no pain ROM of hip today, working on d/c planning Subjective Subjective Date/Time Seen: 07/09/20 11:21 Objective Data Vital Signs Vital Signs: Vital Signs - 24 hr 07/08/20 14:00 07/08/20 22:00 07/08/20 22:32 Temperature 36.1 C L 36.6 C Pulse Rate 88 83 94 Respiratory Rate 12 16 Blood Pressure 135/78 146/93 H Pulse Oximetry 96 100 07/09/20 06:00 07/09/20 09:37 Temperature 37.1 C Pulse Rate 89 100 Respiratory Rate 16 Blood Pressure 139/75 Pulse Oximetry 92 Intake/Output Intake/Output: Intake & Output 07/06/20 07/07/20 07/08/20 07/09/20 23:59 23:59 23:59 23:59 Intake Total 780 1180 669 110 Output Total 200 300 Balance 780 1180 469 -190 Meds/Results Medications: Active Medications Generic Name Dose Route Start Last Admin Trade Name Freq PRN Reason Stop Dose Admin Acetaminophen 650 mg 07/05/20 11:51 07/06/20 20:55 Tylenol Tablet PO 650 mg Q4H PRN Administration Pain Aspirin 81 mg 07/06/20 09:00 07/09/20 09:35 Aspirin Ec PO 81 mg DAILY MOHAN Administration Carvedilol 6.25 mg 07/05/20 21:00 07/09/20 09:37 Coreg PO 6.25 mg Q12HR MOHAN Administration Enoxaparin Sodium 40 mg 07/07/20 09:00 07/09/20 09:35 Lovenox SUB-Q 40 mg DAILY MOHAN Administration Melatonin 3 mg 07/05/20 21:00 07/08/20 22:34 Melatonin PO Not Given HS MOHAN Mirtazapine 15 mg 07/05/20 21:00 07/08/20 22:32 Remeron PO 15 mg HS MOHAN Administration Tramadol HCl 50 mg 07/05/20 12:52 07/09/20 02:35 Ultram PO 50 mg TID PRN Administration Pain 4 -6 Radiology Results: ITS Impressions Hip/Pelvis X-Ray 07/04/20 21:03 IMPRESSION: Intact bilateral hip replacements. Head CT 07/04/20 21:55 IMPRESSION: 1. No acute intracranial findings. 2. Chronic age related findings. 3. 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 Pelvis CT 07/04/20 23:01 IMPRESSION: Equivocal acute nondisplaced left superior ramus fracture Quality VTE Prophylaxis VTE prophylaxis: pharmacologic ordered
[2020-07-09 14:00] VITALS: BP 125/75; PULSE 90; RESP 14; TEMP 36.1; O2SAT 99
--- NOTE | 2020-07-09 16:40 | PM.IMPN ---
Progress Note: A&P Assessment and Plan (1) Gait instability: Code(s): R26.81 - Unsteadiness on feet Status: Acute Assessment and Plan: Possible pubic ramus fracture, continue current management with PT, waiting on NH placement. Tylenol for pain. (2) Hypertension: Code(s): I10 - Essential (primary) hypertension Status: Acute Assessment and Plan: Her blood pressure still on the high side but acceptable for her age, her HR under better control. On carvedilol. (3) Dementia: Code(s): F03.90 - Unspecified dementia without behavioral disturbance Status: Acute Assessment and Plan: She seems at baseline but she is at risk for delirium. Avoid medications with high anticholinergic burden. Subjective Date/time seen: No changes in her condition, waiting on placement. 07/09/20 16:40 Exam Const: General: comfortable and no acute distress Other: Alert but confused, most likely at baseline. Eyes: Pupils: Equal, round and reactive pupils present Neck: Neck: supple and no JVD Resp: Effort & Inspection: normal respiratory effort Auscultation: clear to auscultation bilaterally Cardio: Rate: regular rate Rhythm: regular rhythm Other: No tachycardia or bradycardia. GI: Auscultation: normal bowel sounds Other: Non tender. Neuro: Cranial nerves: Yes Equal, round and reactive pupils present Speech: normal speech Motor exam (neuro): 5/5 motor strength present throughout and Normal motor muscle tone present throughout Extrem: Other: No edema. Psych: Other: Confused but pleasant , not in distress. Objective Data Vital Signs Vital Signs: Vital Signs - 24 hr 07/08/20 22:00 07/08/20 22:32 07/09/20 06:00 Temperature 97.8 F 98.8 F Pulse Rate 83 94 89 Respiratory Rate 16 16 Blood Pressure 146/93 H 139/75 Pulse Oximetry 100 92 07/09/20 09:37 07/09/20 14:00 Temperature 97.0 F L Pulse Rate 100 90 Respiratory Rate 14 Blood Pressure 125/75 Pulse Oximetry 99 Intake/Output Intake/Output: Intake & Output 07/06/20 07/07/20 07/08/20 07/09/20 23:59 23:59 23:59 23:59 Intake Total 780 1180 669 110 Output Total 200 300 Balance 780 1180 469 -190 Meds/Results Medications: Active Medications Generic Name Dose Route Start Last Admin Trade Name Tyron PRN Reason Stop Dose Admin Acetaminophen 650 mg 07/05/20 11:51 07/06/20 20:55 Tylenol Tablet PO 650 mg Q4H PRN Administration Pain Aspirin 81 mg 07/06/20 09:00 07/09/20 09:35 Aspirin Ec PO 81 mg DAILY MOHAN Administration Carvedilol 6.25 mg 07/05/20 21:00 07/09/20 09:37 Coreg PO 6.25 mg Q12HR MOHAN Administration Enoxaparin Sodium 40 mg 07/07/20 09:00 07/09/20 09:35 Lovenox SUB-Q 40 mg DAILY MOHAN Administration Melatonin 3 mg 07/05/20 21:00 07/08/20 22:34 Melatonin PO Not Given HS MOHAN Mirtazapine 15 mg 07/05/20 21:00 07/08/20 22:32 Remeron PO 15 mg HS MOHAN Administration Tramadol HCl 50 mg 07/05/20 12:52 07/09/20 02:35 Ultram PO 50 mg TID PRN Administration Pain 4 -6 Radiology Results: ITS Impressions Hip/Pelvis X-Ray 07/04/20 21:03 IMPRESSION: Intact bilateral hip replacements. Head CT 07/04/20 21:55 IMPRESSION: 1. No acute intracranial findings. 2. Chronic age related findings. 3. 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 Pelvis CT 07/04/20 23:01 IMPRESSION: Equivocal acute nondisplaced left superior ramus fracture Quality VTE Prophylaxis VTE prophylaxis: pharmacologic ordered
[2020-07-09 20:41] VITALS: PULSE 88
[2020-07-09] MEDS: MELATONIN 3 MG TABLET PO (20:41)
[2020-07-09] MEDS: MIRTAZAPINE 15 MG TABLET PO (20:41)
[2020-07-09 22:42] VITALS: BP 137/74; PULSE 94; RESP 16; TEMP 36.5; O2SAT 100
[2020-07-10 06:00] VITALS: BP 126/82; PULSE 54; RESP 20; TEMP 36.8; O2SAT 94
[2020-07-10 09:50] VITALS: PULSE 99
[2020-07-10] MEDS: carvediloL 6.25 MG TABLET PO ×2 (09:50→21:46)
[2020-07-10] MEDS: ASPIRIN 81 MG ENTERIC TABLET PO (09:50)
[2020-07-10] MEDS: ENOXAPARIN 40 MG/0.4 ML SYRINGE SUB-Q (09:53)
[2020-07-10 14:00] VITALS: BP 125/69; PULSE 100; RESP 18; TEMP 36.6; O2SAT 97
--- NOTE | 2020-07-10 14:02 | PCDIET ---
Nutrition Follow-Up Complete: Underweight R/T reduced intake as evidence by BMI 18.1 PO intake of meals and supplements at 50% or greater Goal: Progressing towards goal. Continue goal. Pt current nutrition is Regular +Ensure compact BID. Nutrition recommendation: Agree Last recorded weight is 46.4 kg (recommend updated wt) Bowel Motility: No BM noted, recommend motility agent Labs Reviewed:Na 136 Meds Noted:Remeron, melatonin, tramadol Additional Notes: Pt eating an average of 39% of meals. Recommend assistance with feedings as needed to help improve intake. Supplements offered to help meet needs. Pt drinking 100% of Ensure compact. One Ensure compact provides 220 kcal, 9 g protein, 32g CHO, 26 essential vitamins and minerals, and is an excellent source of plant based omega 3 fatty acids ALA. We will continue to monitor PO intake, wt every 5 days.
--- NOTE | 2020-07-10 14:15 | PM.DS ---
DS: Admitting Diagnosis Admitting Diagnosis Admitting Diagnosis: Left superior pubic rami fracture, gait DS: Discharge Diagnosis Discharge Diagnosis (1) Fall: Code(s): W19.XXXA - Unspecified fall, initial encounter Status: Acute Assessment and Plan: Patient presented with complaints witnessed fall. She did not hit her head or lose consciousness. Head CT negative for acute intracranial findings. She did PT/OT and will continue therapy at [facility] ([facility]). (2) Gait instability: Code(s): R26.81 - Unsteadiness on feet Status: Acute Assessment and Plan: Patient was initially unable to walk secondary to groin/hip pain. Hip/pelvis x-ray showed intact bilateral hip replacements. Pelvis CT showed acute nondisplaced left superior ramus fracture. Pain was controlled with tylenol. She was seen by orthopedics and protected weight bearing as tolerated was recommended. Bone scan was considered 72 hours after the fall, but given her progression with therapy, this was not felt to be required. She may schedule outpatient follow up with orthopedics. Continue therapy at SNF. (3) Hypertension: Code(s): I10 - Essential (primary) hypertension Status: Acute Assessment and Plan: Blood pressures were initially mildly elevated with very mild tachycardia which may have been secondary to pain. However, low dose carvedilol was initiated and she had good response to medication. Both HR and BP showed improvement. Continue carvedilol 6.25 mg BID. Continued BP monitoring recommended at SNF. (4) Dementia: Code(s): F03.90 - Unspecified dementia without behavioral disturbance Status: Acute Assessment and Plan: Patient was pleasantly confused, alert and oriented to self only; consistent with her baseline. DS: Summary Hospital Course Reason for hospitalization: Fall Hospital Course: Date of admission: 07/04/2020 Date of discharge: 07/10/2020 Lisa Knutson in 85-year-old female with history of dementia who presented to the emergency department on 07/04/2020 after suffering a ground level fall witnessed by her daughter. She did not hit her head or lose consciousness. She is a poor historian given her dementia but denied dizziness or lightheadedness prior to the fall. She complained of pain in the left hip been growing and had difficulty bearing weight. At presentation, patient was mildly tachycardic, additional vital signs stable, WBC 5.5 electrolytes stable, urinalysis clear, hip and pelvis x-ray showing intact bilateral hip replacements, head CT with no acute intracranial findings, and pelvis CT was equivocal acute nondisplaced left superior ramus fracture. She was admitted to the hospitalist service for further evaluation and treatment and was seen in consultation by Orthopedics. Please see above for further details. Patient progressed with PT and OT and will continue therapy at SNF. Her pain remained well controlled with Tylenol. She began demonstrating improvement and was felt to no longer require inpatient care. She was discharged in hemodynamically stable condition on 07/10/2020. Status at Discharge Functional status at discharge: uses cane/walker Overall status at discharge: patient is progressing back to baseline Time Spent with Patient Time attestation: Total time spent providing and/or coordinating discharge services:45 minutes Exam Narrative: Exam Narrative: Ms. Knutson is a well-nourished, well-appearing 85-year-old female who is lying supine in bed. She appears comfortable and is in no acute respiratory distress. HR 99, BP 126/82, RR 20, T 98.3?, 94% on room air Neuro: oriented to self only, most questions answered in nonsensical manner,speech clear, no focal neuro deficits noted HEENMT: normocephalic, atraumatic, EOMI, sclerae anicteric, moist oral mucosa, tongue midline, nares patent Neck: supple, no lymphadenopathy Respiratory: clear to aus
[2020-07-10 21:45] VITALS: BP 150/88; PULSE 90; RESP 18; TEMP 36.9; O2SAT 98
[2020-07-10 21:46] VITALS: PULSE 90
[2020-07-10] MEDS: MELATONIN 3 MG TABLET PO (21:46)
[2020-07-10] MEDS: MIRTAZAPINE 15 MG TABLET PO (21:46)
== END 2020-07-10 23:00 ==
LOC: ANHED 23:27 → ANH3MEDSUR 23:41
PROVIDERS: Family Medicine; Hospitalist; Orthopaedic Surgery; Admitting Provider Internal Medicine; Emergency Provider Emergency Medicine; Visit Provider Internal Medicine
DX: S32.512A Fracture of superior rim of left pubis, initial encounter for closed fracture (principal); W01.0XXA Fall on same level from slipping, tripping and stumbling without subsequent striking against object, initial encounter; R26.81 Unsteadiness on feet; I10 Essential (primary) hypertension; F03.90 Unspecified dementia, unspecified severity, without behavioral disturbance, psychotic disturbance, mood disturbance, and anxiety; F17.210 Nicotine dependence, cigarettes, uncomplicated; K21.9 Gastro-esophageal reflux disease without esophagitis; Z96.643 Presence of artificial hip joint, bilateral; Z86.73 Personal history of transient ischemic attack (TIA), and cerebral infarction without residual deficits; Z79.82 Long term (current) use of aspirin
CPT/HCPCS: 36415; 51701; 70450; 72192; 73502; 80048; 80053; 81001; 85025; 85610; 85652; 85730; 86140; 87635; 96365; 96372; 97110; 97161; 97165; 97530; 97535; 99285; A9270; C9803; G0378; J0131; J1650; U0003